=== PATIENT | female | born 1970 | race Caucasian/White ===

== ENCOUNTER → 2021-06-06 17:52 | Outpatient (CLI) | payer BC, SELFPAY ==
--- NOTE | ~2021-06-06 | MM_ITS ---
EXAMINATION: MM screening madeline BI w jayson HISTORY: Screening mammogram TECHNIQUE: Craniocaudal and mediolateral oblique 3-D tomosynthesis images were obtained and synthetic 2-D images were generated. CAD analysis was submitted and interpreted. COMPARISON: 04/09/2019, 12/27/2016 bilateral digital screening mammogram examinations BREAST PARENCHYMAL COMPOSITION: There are scattered areas of fibroglandular density. FINDINGS: Left mammographic asymmetries in the central and lateral aspect of the left breast. Diagnos tic left mammogram is recommended, with ultrasound if required. There is no evidence of suspicious ma ss, calcification, or architectural distortion to suggest malignancy in the right breast. There has b een no suspicious interval change on the right. IMPRESSION: 1. Left mammographic asymmetries; diagnostic left mammogram is recommended, with ultrasound if requir ed 2. No evidence of malignancy of right breast BI-RADS Category 0: Incomplete: Needs additional imaging evaluation. Reviewed, dictated and finalized at location A. IMPRESSION: 1. Left mammographic asymmetries; diagnostic left mammogram is recommended, wit h ultrasound if required 2. No evidence of malignancy of right breast BI-RADS Category 0: Incomplete: Needs additional imaging evaluation.
== END ==
PROVIDERS: Visit Provider Obstetrics & Gynecology
DX: Z12.31 Encounter for screening mammogram for malignant neoplasm of breast (principal); R92.8 Other abnormal and inconclusive findings on diagnostic imaging of breast
CPT/HCPCS: 77063; 77067

== ENCOUNTER → 2021-07-21 07:21 | Outpatient (CLI) | payer BC, SELFPAY ==
--- NOTE | ~2021-07-21 | MMUS_ITS ---
EXAMINATION: MM diagnostic madeline LT w jayson, US breast LT limited HISTORY: Follow-up left breast asymmetries TECHNIQUE: Additional 3-D tomosynthesis images of the left breast were performed and synthetic 2-D im ages were generated. CAD analysis was submitted and interpreted. High resolution Limited left breast ultrasound was performed. COMPARISON: Comparison to multiple prior studies sequentially, with oldest reviewed study dated 12/27. BREAST PARENCHYMAL COMPOSITION: Breast composed of scattered areas of fibroglandular density. FINDINGS: MAMMOGRAPHIC FINDINGS: There is a stable intramammary lymph node in the upper outer quadrant of the left breast. No new mass es, calcifications or architectural distortion in the left breast to suggest malignancy. ULTRASOUND: Limited left breast ultrasound: At 3:00, 4 cm from the nipple, there is a 6 mm intramammary lymph nod e corresponding to the mammographic finding. Near the areola there is a 4 mm cyst. No suspicious mass es to suggest malignancy. IMPRESSION: 1. No evidence for malignancy in the left breast. Benign findings. 2. Routine yearly screening mammogram and regular clinical breast examination are recommended. BI-RADS Category 2: Benign finding(s). Reviewed, dictated and finalized at location A. STRIAL MILLWRIGHT IMPRESSION: 1. No evidence for malignancy in the left breast. Benign findings. 2. Routine yearly screening mammogram and regular clinical breast examination a re recommended. BI-RADS Category 2: Benign finding(s).
== END ==
PROVIDERS: PCP Family Medicine; Visit Provider Obstetrics & Gynecology
DX: R92.8 Other abnormal and inconclusive findings on diagnostic imaging of breast (principal)
CPT/HCPCS: 76642; 77061; 77065; G0279

== ENCOUNTER → 2021-07-21 07:22 | Outpatient (CLI) | payer BC, SELFPAY ==
--- NOTE | ~2021-07-21 | XR_ITS ---
EXAMINATION: XR toe 1st LT min 2V DATE: 07/21/2021 07:55 INDICATION: Pain in left toe. TECHNIQUE: 3 views of left great toe were obtained. COMPARISON: None. FINDINGS: Bone alignment is normal. No fracture. There is mild osteoarthritis of first metatarsophala ngeal joint. IMPRESSION: 1. Mild osteoarthritis of first metatarsophalangeal joint. Reviewed, dictated and finalized at location A. NOLOGY APPLICATIONS CONSULTANT
--- NOTE | ~2021-07-21 | XR_ITS ---
EXAMINATION: XR foot LT 2V DATE: 07/21/2021 07:55 INDICATION: Left toe pain. TECHNIQUE: 2 views of left foot were obtained. COMPARISON: None. FINDINGS: Bone alignment is normal. No fracture. There is mild osteoarthritis of first metatarsophala ngeal joint. There is an enthesophyte at plantar aspect of calcaneal tuberosity. IMPRESSION: 1. Mild osteoarthritis of first metatarsophalangeal joint. Reviewed, dictated and finalized at location A. WARE APPLICATIONS ARCHITECT
== END ==
PROVIDERS: PCP Family Medicine; Visit Provider Nurse Practitioner Family
DX: M79.675 Pain in left toe(s) (principal); M19.072 Primary osteoarthritis, left ankle and foot
CPT/HCPCS: 73620; 73660

== ENCOUNTER 2023-11-15 12:21 | Outpatient (CLI) | payer BC, SELFPAY ==
--- NOTE | ~2023-11-15 | MM_ITS ---
EXAMINATION: MM screening madeline BI w jayson HISTORY: Screening mammogram TECHNIQUE: Craniocaudal and mediolateral oblique 3-D tomosynthesis images were obtained and synthetic 2-D images were generated. CAD analysis was submitted and interpreted. COMPARISON: 07/21/2021 diagnostic left mammogram and limited left breast ultrasound examination 06/06/2021 bilateral screening mammogram BREAST PARENCHYMAL COMPOSITION: There are scattered areas of fibroglandular density. FINDINGS: Stable posterior upper outer quadrant left breast intramammary lymph node. There is no evid ence of suspicious mass, calcification, or architectural distortion to suggest malignancy in either b reast. There has been no suspicious interval change. IMPRESSION: 1. No mammographic evidence of malignancy. 2. Recommend routine screening mammography in one year. BI-RADS Category 2: Benign finding(s). Reviewed, dictated and finalized at location A.
== END 2023-11-15 12:22 ==
LOC: MICIMG 12:22
PROVIDERS: PCP Obstetrics & Gynecology; Visit Provider Obstetrics & Gynecology
DX: Z12.31 Encounter for screening mammogram for malignant neoplasm of breast (principal)
CPT/HCPCS: 77063; 77067

== ENCOUNTER 2024-03-28 10:58 | Emergency (ER) | payer BC, SELFPAY ==
--- NOTE | ~2024-03-28 | XR_ITS ---
EXAMINATION: XR chest 2V DATE: 03/28/2024 11:22 INDICATION: Chest pain and shortness of breath TECHNIQUE: PA and lateral views of the chest were obtained. COMPARISON: None FINDINGS: The lungs are clear with no focal airspace opacities, pulmonary edema, pleural effusion or pneumothor ax. The cardiomediastinal silhouette is normal. Visualized bones and soft tissues are unremarkable. IMPRESSION: 1. No acute cardiopulmonary disease. Reviewed, dictated and finalized at location A.
--- NOTE | 2024-03-28 10:59 | ECG_ITS ---
Test Date: 2024-03-28 11:02:57 Measurements Intervals [place] Rate: 102 P: 51 [place]: 147 QRS: 16 QRSD: 94 T: 20 QT: 350 QTc: 457 Interpretive Statements SINUS TACHYCARDIA NONSPECIFIC T-WAVE ABNORMALITY ABNORMAL ECG No previous ECG available for comparison Electronically Signed On 03-28-2024 13:47:48 CDT by Robert Lopez M.D.
[2024-03-28 11:21] VITALS: BP 137/87; PULSE 92; RESP 12; TEMP 36.9; O2SAT 99
[2024-03-28 11:34] LABS: Basophils Absolute Auto 0.1 K/mm3 (0.0-0.1); Basophils Percent Auto 0.8 % (0.2-1.2); Eosinophils Absolute Auto 0.1 K/mm3 (0-0.3); Eosinophils Percent Auto 1.1 % (0-4.4); Hematocrit 44.3 % (37.0-47.0); Hemoglobin 15.1 g/dL (12.0-15.0); Immature Granulocyte Absolute 0.02 K/mm3 (0.00-0.031); Immature Granulocyte Percent A 0.3 % (0-0.5); Lymphocytes Percent Auto 34.7 % (18.3-44.2); Mean Corpuscular HGB Conc 34.1 g/dl (32-36); Mean Corpuscular Hemoglobin 31.3 pg (26-34); Mean Corpuscular Volume 91.7 fl (80-100); Mean Platelet Volume 9.6 fl (7.4-10.4); Monocytes Absolute Auto 0.6 K/mm3 (0.1-0.6); Monocytes Percent Auto 8.3 % (2.6-8.5); Neutrophils Absolute Auto 3.6 K/mm3 (1.3-6.7); Neutrophils Percent Auto 54.8 % (45.5-73.1); Platelet Count Result 239 k/mm3 (150-375); Red Blood Count 4.83 M/mm3 (4.2-5.4); Red Cell Distribution Width 12.3 % (11.5-14.5); White Blood Count 6.6 K/mm3 (4.5-10.0)
[2024-03-28 11:44] LABS: Prothrombin Time 13.7 Seconds (11.1-14.7)
[2024-03-28 11:45] LABS: Partial Thromboplastin Time 23.3 Seconds (22.3-36.8)
[2024-03-28 11:46] LABS: Alanine Aminotransferase 20 U/L (6-35); Albumin Level 4.5 g/dL (3.5-5.1); Alkaline Phosphatase 88 U/L (38-126); Anion Gap 11 mmol/L (4-12); Aspartate Amino Transferase 26 U/L (14-36); Bilirubin,Total 0.4 mg/dL (0.2-1.3); Blood Urea Nitrogen 14 mg/dL (7-17); Calcium 9.1 mg/dL (8.4-10.2); Carbon Dioxide 23 mmol/L (22-30); Chloride 104 mmol/L (98-107); Estimated CRCL calculation 70 ml/min; Estimated Glomerular Filt Rate > 60; Glucose 125 mg/dL (65-110); Lipase 86 U/L (23-300); Potassium 3.9 mmol/L (3.4-5.0); Sodium 138 mmol/L (137-145)
[2024-03-28 11:56] LABS: Troponin I < 0.012 ng/mL (0.000-0.034)
--- NOTE | 2024-03-28 13:30 | PC.NURSE ---
Pt to desk stating that her symptoms have resolved and she will be leaving. Advised to return if symptoms return or for any other concerns. Pt A&Ox4
== END 2024-03-28 14:00 | disposition left against medical advice (07) ==
LOC: ANHED 13:37
PROVIDERS: Emergency Provider Emergency Medicine; PCP Obstetrics & Gynecology
DX: R42 Dizziness and giddiness (principal)
CPT/HCPCS: 36415; 71046; 80053; 83690; 84484; 85025; 85610; 85730; 93005; 99199

== ENCOUNTER 2024-03-30 14:30 | Outpatient (CLI) | payer BC, SELFPAY ==
--- NOTE | ~2024-03-30 | CT_ITS ---
EXAMINATION: CT abdomen wo/w con DATE: 03/30/2024 15:10 INDICATION: Disorder of adrenal gland TECHNIQUE: Computed tomography (CT) of the abdomen and pelvis was performed without and with 100 mL O mnipaque-350 intravenous contrast. Automated exposure control and iterative reconstruction technique were employed. The dose-length product was 1821.48 mGy-cm. COMPARISON: None FINDINGS: Mild dependent atelectasis in the bilateral lower lobes. Heart size is normal. No pericardial or pleu ral effusion. Small sliding-type hiatal hernia. Liver, gallbladder, pancreas and bilateral adrenal gl ands are normal. Multiple splenic calcifications consistent with old granulomatous disease. Bilateral nonobstructing nephrolithiasis with 3 mm stone the upper pole the right kidney and 2 mm stone at the lower pole of the left kidney. Visualized portion of the bowels including the appendix are normal. T iny fat-containing umbilical hernia. No pathologically enlarged abdominal lymphadenopathy. IMPRESSION: 1. Normal bilateral adrenal glands. 2. Bilateral nonobstructing nephrolithiasis. Reviewed, dictated and finalized at location A.
== END 2024-03-30 14:31 ==
LOC: MICIMG 14:31
PROVIDERS: PCP Obstetrics & Gynecology; Visit Provider Internal Medicine Endocrinology, Diabetes & Metabolism
DX: E27.9 Disorder of adrenal gland, unspecified (principal); N20.0 Calculus of kidney
CPT/HCPCS: 74170; Q9967

== ENCOUNTER 2024-04-14 11:21 | Emergency (ER) | payer BC, SELFPAY ==
[2024-04-14 11:45] VITALS: BP 117/87; PULSE 91; RESP 16; TEMP 37; O2SAT 99
--- NOTE | 2024-04-14 12:59 | ED.EAR ---
HPI - Ear Problem General Chief complaint: Ear Stated complaint: Ear pain Time Seen by Provider: 04/14/24 12:32 Source: patient, RN notes reviewed and old records reviewed Mode of arrival: ambulatory Limitations: no limitations History of Present Illness HPI Narrative: 53-year-old female to [facility] with complaint of bilateral ear fullness for 4 days. patient has history of vertigo and took meclizine and [id number]-ire-[id number] allergy medications without relief. Patient reports taking negative COVID test at home. Patient denies cough, nasal congestion, nasal discharge, sore throat, fever, difficulty swallowing, shortness of breath, chest pain. Patient able to tolerate fluids by mouth. Respirations even and nonlabored. Patient resting in exam room in no acute distress. Related Data Home Medications Medication Instructions Recorded Confirmed levothyroxine 25 mcg tablet 25 mcg PO DAILY 04/14/20 04/15/24 (Synthroid) Allergies Allergy/AdvReac Type Severity Reaction Status Date / Time erythromycin base Allergy Unknown Unknown Verified 04/15/24 09:03 Review of Systems Review of Systems: All systems reviewed & are unremarkable except as noted in HPI and below Constitutional: Constitutional: Reports no additional constitutional complaints Eyes: Eyes: Reports no additional eye complaints ENT: Reports as per HPI and Reports otalgia ( Bilateral fullness x4 days) Cardiovascular: Cardiovascular: Reports no additional cardiovascular complaints, Denies chest pain and Denies dyspnea Respiratory: Respiratory: Reports no additional respiratory complaints, Denies cough and Denies dyspnea Musculoskeletal: Musculoskeletal: Reports no additional musculoskeletal complaints Neurologic: Reports system reviewed and no additional complaints, except as documented Psychiatric: Psychiatric: Reports no additional psychiatric complaints PMFSH Past Medical History Medical History Abnormal weight gain Acquired hypothyroidism ASCUS with positive high risk HPV cervical Body mass index [BMI] 26.0-26.9, adult (04/08/19) Body mass index [BMI] 28.0-28.9, adult (12/27/16) Body mass index [BMI] 30.0-30.9, adult (10/02/18) Body mass index [BMI] 31.0-31.9, adult (09/02/17) Body mass index [BMI] 33.0-33.9, adult (05/24/16) Cervical high risk HPV (human papillomavirus) test positive Dietary counseling and surveillance (11/16/16) Encounter for gynecological examination (general) (routine) without abnormal findings Hypothyroidism, unspecified Pap smear abnormality of cervix with LGSIL Routine physical examination Screening for diabetes mellitus Screening for lipid disorders Screening mammogram, encounter for Family History Family History Father No family history of cerebrovascular accident (CVA) Diabetes mellitus Family history of type 2 diabetes mellitus Family history of heart disease in male family member before age 55 Hypertension Family history of diabetes mellitus in first degree relative Sibling Family history of malignant neoplasm of breast in first degree relative Family history of type 2 diabetes mellitus Mother Hyperlipidemia Sibling Breast cancer Uterine cancer Social History Social History Smoking status: Never smoker Second hand tobacco smoke exposure: No Alcohol intake: current Substance use: never Substance use type: does not use Lack of Transportation: No Lack of Food: Never True Current Housing: I Have Housing Concerned About Future Housing: No Difficulty Paying Gas/Electric Bills: No Difficulty Paying for Meds: No Currently Unemployed: No Education: Bachelor's Degree Difficulty w/ Childcare or Family Care: No Living arrangements: with family Occupation/Education: occupation Additional occu
== END 2024-04-14 12:52 | disposition home or self-care (01) ==
PROVIDERS: Emergency Provider Nurse Practitioner Family; PCP Family Medicine
DX: H66.92 Otitis media, unspecified, left ear (principal); E03.9 Hypothyroidism, unspecified
CPT/HCPCS: 99213; G0463

== ENCOUNTER 2024-08-26 18:56 | Emergency (ER) | payer BC, SELFPAY ==
--- NOTE | 2024-08-26 19:05 | ECG_ITS ---
Test Date: 2024-08-26 19:09:52 Measurements Intervals [place] Rate: 94 P: 54 [place]: 165 QRS: 22 QRSD: 89 T: 49 QT: 345 QTc: 432 Interpretive Statements SINUS RHYTHM Compared to ECG 03/28/2024 11:02:57 Sinus tachycardia no longer present T-wave abnormality no longer present Electronically Signed On 08-27-2024 09:19:16 STRAP CUTTING MACHINE OPERATOR by Zack Bautista M.D.
--- NOTE | 2024-08-26 19:05 | ED.GENADULT ---
HPI - General Adult General Stated complaint: VOMITING/CHEST & BACK PAIN/UTI SYMPTOMS Source: patient Mode of arrival: ambulatory Limitations: no limitations History of Present Illness HPI narrative: 53 y/o female presented for c/o pain to chest and upper back, and nausea/ vomiting. Onset today. Pt has taken Macrobid yesterday and today for UTI, as prescribed per telehealth. States she had been taking the antibiotic on an empty stomach due to nausea from the pain from the UTI. After vomiting, she ate [employer] cheeseburger and subsequently developed the chest pain. Unable to describe the pain, stating I don't know. Denies abdominal pain, flank pain, cough, sob, wheezing, dizziness, or heart racing. Related Data Home Medications ?Medication ?Instructions ?Recorded ?Confirmed ?Last Taken ?Type levothyroxine 25 mcg tablet 25 mcg PO DAILY 04/14/20 06/11/24 Unknown History (Synthroid) metformin 500 mg tablet,extended mg PO 05/13/24 06/11/24 Unknown History release 24 hr mifepristone 300 mg tablet mg PO 08/26/24 Unknown History nitrofurantoin 08/26/24 Unknown History monohydrate/macrocrystals 100 mg capsule ondansetron HCl 4 mg tablet mg 08/26/24 Unknown History spironolactone 100 mg tablet mg 08/26/24 Unknown History spironolactone 50 mg tablet mg 08/26/24 Unknown History Allergies Allergy/AdvReac Type Severity Reaction Status Date / Time erythromycin base Allergy Unknown Unknown Verified 08/26/24 19:01 pseudoephedrine (From AdvReac Intermediate Palpitation Verified 08/26/24 19:01 Sudafed) s Review of Systems Review of Systems: CONSTITUTIONAL: Denies body aches, fever, chills, or sweats. EYES: Denies visual changes, redness, or discharge. ENT: Denies rhinorrhea, congestion, sore throat, or otalgia. CARDIOVASCULAR: reports chest pain, denies palpitations, or edema. RESPIRATORY: Denies cough or dyspnea. GASTROINTESTINAL: Denies abdominal pain, or diarrhea reports nausea, vomiting MUSCULOSKELETAL: reports upper back pain NEUROLOGIC: Denies headache, numbness, tingling, or weakness. All systems reviewed & are unremarkable except as noted in HPI and below PMFSH Past Medical History Medical History ASCUS with positive high risk HPV cervical Abnormal weight gain Acquired hypothyroidism Body mass index [BMI] 26.0-26.9, adult (04/08/19) Body mass index [BMI] 28.0-28.9, adult (12/27/16) Body mass index [BMI] 30.0-30.9, adult (10/02/18) Body mass index [BMI] 31.0-31.9, adult (09/02/17) Body mass index [BMI] 33.0-33.9, adult (05/24/16) Cervical high risk HPV (human papillomavirus) test positive Dietary counseling and surveillance (11/16/16) Encounter for gynecological examination (general) (routine) without abnormal findings Pap smear abnormality of cervix with LGSIL Routine physical examination Screening for diabetes mellitus Screening for lipid disorders Screening mammogram, encounter for Hypothyroidism, unspecified Family History Family History Father No family history of cerebrovascular accident (CVA) Diabetes mellitus Family history of type 2 diabetes mellitus Family history of heart disease in male family member before age 55 Hypertension Family history of diabetes mellitus in first degree relative Sibling Family history of malignant neoplasm of breast in first degree relative Family history of type 2 diabetes mellitus Mother Hyperlipidemia Sibling Breast cancer Uterine cancer Social History Social History Smoking status: Never smoker Second hand tobacco smoke exposure: No Alcohol intake: current Substance use: never Substance use type: does not use Lack of Transportation: No Lack of Food: Never True Current Housing: I Have Housing Concerned About Future Housing: No Difficulty Paying Gas/Electric Bills: No Difficulty Paying for Meds: No Currently Unemployed: No Education: Bachelor's Degree Difficulty w/ Childcare or Family Care: No Living arrangements: with family Occupation/Education: occupation 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 Please see nursing chart for further information. There is no relevant family history pertinent to the presenting complaint Exam Narrative: GENERAL: Well-appearing, and in no acute distress. EYES: EOMI. No redness or drainage. Conjunctivae normal. ENT: Mucous membranes pink and moist. CHEST: No respiratory distress. Clear to auscultation. Nontender with palpation. HEART: Regular rhythm and rate. No murmur appreciated. Normal peripheral pulses. ABDOMEN: Soft, nontender, nondistended, normal active bowel sounds. No CVA tenderness. MUSCULOSKELETAL: No bony tenderness. EXTREMITIES: Normal range of motion. No edema. SKIN: Warm, dry, no rash. Capillary refill normal. Normal skin turgor. NEURO: No focal deficits. Alert and oriented x3. Gait steady. PSYCH: irritable. Course Course Emergency Course: Patient is aware of diagnosis, understands and agrees to treatment plan. Anticipatory guidance given. Patient agrees to follow-up as directed and is aware of reasons to seek care at the emergency department. Portions of this record may have been created with voice recognition software Level of Care: Express Care Visit Medical Decision Making MDM Narrative Medical decision making narrative: Discussed physical exam findings and EKG with pt. Discussed at length possible etiologies of the symptoms. Advised ER transfer to r/o cardiac etiology. pt declines at this time. VSS. Declined GI cocktail stating she has had one before and it makes her feel like she cannot breathe. The patient is AA&Ox3, free from distracting injury. The patient has demonstrated concrete thinking/reasoning, has maintained an cardiology teacher/reasonable conversation, appears to have intact insight/judgment/reason and therefore has capacity to make decisions. Given the patients presentation, we communicated our concern for chest pain in laymans terms. The patient verbalized an understanding. The patient is aware the evaluation is incomplete & many troublesome conditions have not been r/o. We have discussed the need for further ED evaluation. We have discussed the range of possible dx, potential testing & treatment options. Our discussions included the potential outcomes of leaving AMA, including worsening of their condition, becoming permanently disabled/in pain/critically ill, or . Despite these efforts, we were unable to convince the pt to go to the ER. We have attempted to offer tx/rx/guidance for any dangerous conditions which are most likely and/or dangerous. We have answered all questions and have implored the patient to go to ER [facility] to complete the w/u. A staff member witnessed the patient consenting to AMA. Differential Diagnosis Differential Diagnosis: STEMI, AAA, PE, pneumothorax, cardiac tamponade, esophageal rupture, pneumonia, GERD, musculoskeletal pain, endocarditis, pericarditis, URI, bronchitis, anxiety Vital Signs Vital Signs: reviewed ECG Data EKG #1: Attestation: I personally reviewed and interpreted this ECG as follows: (NSR 94 GA 165 QR 89 QT/QTc 345/396) ECG completion date: 08/26/24 ECG completion time: 19:09 EKG Interpretation: normal rate and sinus rhythm Discharge Plan Discharge Clinical Impression: Chest pain Qualifiers: Chest pain type: unspecified Qualified Code(s): R07.9 - Chest pain, unspecified Patient Disposition: Left Against Medical Advice Condition: Stable Patient Language: Luxembourgish Prescriptions: No Action ondansetron HCl 4 mg tablet spironolactone 100 mg tablet spironolactone 50 mg tablet nitrofurantoin monohyd/m-cryst 100 mg capsule mifepristone 300 mg tablet PO levothyroxine [Synthroid] 25 mcg tablet 25 mcg PO DAILY metformin 500 mg tablet extended release 24 hr PO Slynd 4 mg (28) tablet 4 mg PO DAILY Qty: 84 0RF Follow-up/Referrals: Zonia Lange, PAC [Primary Care Provider] - Time of Disposition: 19:40
[2024-08-26 19:16] VITALS: BP 131/94; PULSE 102; RESP 16; TEMP 37.1; O2SAT 100
== END 2024-08-26 19:35 | disposition left against medical advice (07) ==
PROVIDERS: Emergency Provider Nurse Practitioner Family; PCP Physician Assistant Medical
DX: R07.9 Chest pain, unspecified (principal); E03.9 Hypothyroidism, unspecified
CPT/HCPCS: 93005; 99213; G0463